=== PATIENT | female | born 1960 | race Caucasian/White ===

== ENCOUNTER 2022-02-07 07:51 | Day surgery (SDC) | payer BC, OTHER ==
[2022-02-01 11:38] VITALS: BMI 24.9
[2022-02-07 09:54] VITALS: RESP 16; TEMP 97.1
[2022-02-07 10:11] VITALS: BP 152/84; PULSE 81
== END 2022-02-07 10:20 | disposition home or self-care (01) ==
LOC: FASU-ENDO 07:51
PROVIDERS: ATTEND Internal Medicine Gastroenterology
PROC: 0DJD8ZZ Inspection of Lower Intestinal Tract, Via Natural or Artificial Opening Endoscopic (ICD-10-PCS; principal; 2022-02-07 09:23)
DX: Z12.11 Encounter for screening for malignant neoplasm of colon (principal); Z86.010 Personal history of colon polyps